=== PATIENT | female | born 2000 | race Caucasian/White ===

== ENCOUNTER → 2020-06-25 | Outpatient (CLI) | payer SELFPAY | LOC: M LABSMTC 13:25 | PROVIDERS: ATTEND Pediatrics | DX: Z20.822 Contact with and (suspected) exposure to COVID-19 (principal) ==

== ENCOUNTER → 2020-07-10 | Outpatient (REF) | LOC: M LABSMTC 11:22 | PROVIDERS: ATTEND Family Medicine | DX: Z20.822 Contact with and (suspected) exposure to COVID-19 (principal) ==

== ENCOUNTER → 2020-09-09 | Outpatient (REF) | LOC: M LABSMTC 14:03 | PROVIDERS: ATTEND Pediatrics | DX: Z11.52 Encounter for screening for COVID-19 (principal) ==

== ENCOUNTER → 2020-10-06 | Outpatient (CLI) | payer OTHER ==
--- NOTE | 2020-10-06 15:02 | REP ---
INDICATION: M54.42, LUMBAGO WITH SCIATICA LEFT SIDE COMPARISON: None. TECHNIQUE: AP, lateral, bilateral oblique, and coned-down views of the lumbar spine. FINDINGS: Lordosis maintained. Vertebral bodies are intact. Disc spaces are relatively normal/age-appropriate. No acute fracture/compression injury or subluxation. Very subtle L5 spondylolysis with 1.5 mm anterolisthesis cannot be excluded. IMPRESSION: Cannot exclude very subtle L5 spondylolysis with minimal spondylolisthesis. Consider CT or MRI for further investigation if necessary. <Electronically signed by Neil Landrum > 10/06/20 [id number]
--- NOTE | 2020-10-06 15:20 | REP ---
INDICATION: M41.9, SCOLIOSIS OF THORACOLUMBAR SPINE. COMPARISON: None. TECHNIQUE: Two upright AP views of the thoracolumbar spine. FINDINGS: Mild levoconvex scoliosis of approximately 10 degrees measured from the superior endplate of T10 to the superior endplate of L3 is suggested and should be correlated clinically. Vertebral bodies are normal in the frontal projection. No paravertebral soft tissue abnormalities noted. IMPRESSION: Mild levoconvex scoliosis suggested. <Electronically signed by Neil Landrum > 10/06/20 [id number]
== END ==
LOC: M CLY 14:27
PROVIDERS: ATTEND Nurse Practitioner Family
DX: M54.42 Lumbago with sciatica, left side (principal); M41.9 Scoliosis, unspecified

== ENCOUNTER → 2020-12-31 | Outpatient (REF) | payer OTHER ==
[2020-12-31 17:34] LABS: HEPATITIS A ANTIBODY IGM NEGATIVE (NEGATIVE); HEPATITIS B CORE ANTIBODY IGM NEGATIVE (NEGATIVE); HEPATITIS B SURFACE ANTIGEN NEGATIVE (NEGATIVE); HEPATITIS C VIRUS ABY INDEX 0.1 INDEX (<0.8); HIV 1&2 SCREEN CENTAUR NEGATIVE (NEGATIVE)
[2020-12-31 18:24] LABS: GC DNA AMPLIFICATION NEGATIVE (NEGATIVE)
== END ==
LOC: M SFHCCLAY 11:18
PROVIDERS: ATTEND Nurse Practitioner Family
DX: Z01.419 Encounter for gynecological examination (general) (routine) without abnormal findings (principal); Z11.3 Encounter for screening for infections with a predominantly sexual mode of transmission; Z12.4 Encounter for screening for malignant neoplasm of cervix; R87.628 Other abnormal cytological findings on specimens from vagina

== ENCOUNTER → 2021-01-28 | Outpatient (REF) | LOC: M EMP 08:09 | PROVIDERS: ATTEND Family Medicine | DX: Z11.52 Encounter for screening for COVID-19 (principal) ==

== ENCOUNTER → 2021-02-04 | Outpatient (CLI) | payer OTHER ==
--- NOTE | 2021-02-04 16:05 | REP ---
INDICATION: R06.02 SHORTNESS OF BREATH. COMPARISON: No comparison chest x-ray. TECHNIQUE: Two views.. FINDINGS: The lungs are well inflated and free of infiltrate. The pleural angles are sharp. The heart size is normal. Pulmonary vasculature is not increased. No significant bony abnormality is seen. Nipple jewelry is noted incidentally. IMPRESSION: Negative chest x-ray. <Electronically signed by Wilton Lockett > 02/04/21 [id number]
== END ==
LOC: M CLY 15:49
PROVIDERS: ATTEND Physician Assistant
DX: R06.02 Shortness of breath (principal)

== ENCOUNTER → 2021-02-04 | Outpatient (REF) | payer OTHER | LOC: M SFHCCLAY 15:47 | PROVIDERS: ATTEND Physician Assistant | DX: R06.02 Shortness of breath (principal) ==

== ENCOUNTER → 2021-05-07 | Outpatient (REF) | payer BC, OTHER ==
[2021-05-07 16:14] LABS: BASO # 0.1 10^3/uL (0.0-0.2); BASO % 0.6 % (0.0-1.0); EOS # 0.1 10^3/uL (0.0-0.5); EOS % 0.8 % (0.0-3.0); HEMATOCRIT 42.5 % (36.0-47.0); HEMOGLOBIN 14.3 g/dl (12.0-15.5); LYMPH # 2.3 10^3/uL (1.5-5.0); LYMPH % 15.1 % (24.0-44.0); MEAN CORPUSCULAR HEMOGLOBIN 31.3 pg (27.0-33.0); MEAN CORPUSCULAR HGB CONC 33.6 g/dl (32.0-36.5); MONO # 1.4 10^3/uL (0.0-0.8); MONO % 9.2 % (2.0-8.0); NEUTROPHILS # 11.4 10^3/uL (1.5-8.5); PLATELET COUNT, AUTOMATED 275 10^3/uL (150-450); RED BLOOD COUNT 4.57 10^6/uL (4.00-5.40); WHITE BLOOD COUNT 15.5 10^3/uL (4.0-10.0)
[2021-05-07 17:05] LABS: ALT/SGPT 17 U/L (12-78); BILIRUBIN,TOTAL 0.5 MG/DL (0.2-1.0); BLOOD UREA NITROGEN 8 MG/DL (7-18); CALCIUM LEVEL 9.7 MG/DL (8.5-10.1); CARBON DIOXIDE LEVEL 26 MEQ/L (21-32); CHLORIDE LEVEL 107 MEQ/L (98-107); CREATININE FOR GFR 0.64 MG/DL (0.55-1.30); GLOMERULAR FILTRATION RATE > 60.0 (>60); GLUCOSE, FASTING 89 MG/DL (70-100); POTASSIUM SERUM 4.2 MEQ/L (3.5-5.1); SODIUM LEVEL 140 MEQ/L (136-145); THYROID STIMULATING HORMONE 0.685 uIU/ML (0.358-3.740); TOTAL PROTEIN 7.4 GM/DL (6.4-8.2)
== END ==
LOC: M SFHCCLAY 10:17
PROVIDERS: ATTEND Physician Assistant
DX: R05.9 Cough, unspecified (principal)

== ENCOUNTER → 2021-08-27 | Outpatient (REF) | payer BC | LOC: M SFHCCLAY 14:11 | PROVIDERS: ATTEND Nurse Practitioner Family | DX: N89.8 Other specified noninflammatory disorders of vagina (principal); R05.8 Other specified cough ==

== ENCOUNTER → 2021-10-08 | Outpatient (REF) | payer BC ==
[2021-10-08 16:16] LABS: BASO # 0.1 10^3/uL (0.0-0.2); BASO % 1.1 % (0.0-1.0); EOS # 0.1 10^3/uL (0.0-0.5); EOS % 1.7 % (0.0-3.0); HEMATOCRIT 42.6 % (36.0-47.0); HEMOGLOBIN 14.4 g/dl (12.0-15.5); LYMPH # 2.8 10^3/uL (1.5-5.0); LYMPH % 34.2 % (24.0-44.0); MEAN CORPUSCULAR HEMOGLOBIN 31.2 pg (27.0-33.0); MEAN CORPUSCULAR HGB CONC 33.8 g/dl (32.0-36.5); MEAN CORPUSCULAR VOLUME 92.4 fl (80.0-96.0); MONO # 0.7 10^3/uL (0.0-0.8); MONO % 8.9 % (2.0-8.0); NEUTROPHILS # 4.3 10^3/uL (1.5-8.5); NEUTROPHILS % 53.9 % (36.0-66.0); PLATELET COUNT, AUTOMATED 298 10^3/uL (150-450); RED BLOOD COUNT 4.61 10^6/uL (4.00-5.40); WHITE BLOOD COUNT 8.1 10^3/uL (4.0-10.0)
[2021-10-08 16:48] LABS: ALBUMIN 4.2 GM/DL (3.2-5.2); ALT/SGPT 18 U/L (12-78); BILIRUBIN,TOTAL 0.6 MG/DL (0.2-1.0); BLOOD UREA NITROGEN 14 MG/DL (7-18); CALCIUM LEVEL 9.4 MG/DL (8.5-10.1); CARBON DIOXIDE LEVEL 29 MEQ/L (21-32); CHLORIDE LEVEL 107 MEQ/L (98-107); CREATININE FOR GFR 0.75 MG/DL (0.55-1.30); FREE T4 0.83 NG/DL (0.76-1.46); GLOMERULAR FILTRATION RATE > 60.0 (>60); GLUCOSE, FASTING 88 MG/DL (70-100); IRON (FE) 94 UG/DL (50-170); PERCENT SATURATION 28.9 % (13.2-45.0); POTASSIUM SERUM 4.8 MEQ/L (3.5-5.1); SODIUM LEVEL 139 MEQ/L (136-145); TOTAL IRON BINDING CAPACITY 325 UG/DL (250-450); TOTAL PROTEIN 7.1 GM/DL (6.4-8.2)
[2021-10-08 16:49] LABS: TOTAL 25(OH) VITAMIN D 28.4 NG/ML (30.0-100.0)
[2021-10-08 16:50] LABS: VITAMIN B12 LEVEL 335 PG/ML (247-911)
== END ==
LOC: M SFHCCLAY 10:30
PROVIDERS: ATTEND Nurse Practitioner Family
DX: M79.10 Myalgia, unspecified site (principal); R63.4 Abnormal weight loss; R63.0 Anorexia

== ENCOUNTER → 2021-11-10 | Outpatient (REF) | payer BC | LOC: M SFHCCLAY 15:35 | PROVIDERS: ATTEND Nurse Practitioner Family | DX: N76.0 Acute vaginitis (principal) ==

== ENCOUNTER → 2022-01-12 | Outpatient (REF) | payer OTHER | LOC: M SFHCCLAY 18:55 | PROVIDERS: ATTEND Nurse Practitioner Family | DX: J02.9 Acute pharyngitis, unspecified (principal) ==